=== PATIENT | female | born 1985 | race Caucasian/White ===

== ENCOUNTER → 2018-05-13 | Outpatient (CLI) | payer OTHER ==
[~2018-05-13] VITALS: Ht 167.6 cm; Wt 64.0 kg
[~2018-05-13] MED LIST: IBUPROFEN 800800 M1 PO; MOBIC15 MG PO
--- NOTE | ~2018-05-13 | HPC ---
[facility] [place] [address] PAIN MANAGEMENT CONSULTATION Name: GINNY CURRY Room #: REG BRAYDEN Jamir.#: [id number] Admission: 05/13/18 Attend Phys: Daniel Lowry MD Discharge: Date of : 81 Report #: [id number] THIS REPORT FOR: //name// CC: Jenifer Lowry DATE OF SERVICE: 05/13/2018 PRIMARY CARE PHYSICIAN: Jenifer Meadows MD CHIEF COMPLAINT: Low back pain. HISTORY OF PRESENT ILLNESS: The patient is a 33-year-old white female who has been referred to the pain clinic because of pain in her low back area and some pain down into the lower portion of her back. States that she has had some problems with back pain for a number of years. Notes that the pain over the last few months has increased significantly. Notes that the pain involves her lower back and is exacerbated with activities such as lifting, bending, AND twisting. 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 These activities significantly increase her pain and discomfort. She has tried nonsteroidal anti-inflammatory medication such as ibuprofen. She has undergone stretching and does work out at the gym. She has had physical therapy. Describes her discomfort as continuous, steady, aching, shooting, pulling, sharp and stabbing. Rates her pain as an 8/10 today. The patient has undergone chiropractic treatment. Has tried yoga. ALLERGIES: CYMBALTA. MEDICATIONS: Ibuprofen 800 mg b.i.d., Mirena 52 mcg/24 hours intrauterine device PAST MEDICAL HISTORY: Low back pain, genital warts, right nipple inversion, history of smoking - stopped on 03/2018. PAST SURGICAL HISTORY: No past surgical history. 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 She has been off work since 04/23/2018. REVIEW OF SYSTEMS: Headaches, constipation, frequent urination, breast discharge, lightheadedness, dizziness, nervousness, depression. LABORATORY DATA: 1. MRI of the lumbar spine dated 04/20/2018, disk levels L1-L2 unremarkable. L2-L3 broad-based disk bulge with mild facet arthrosis. [address] [address] PAIN MANAGEMENT CONSULTATION Name: GINNY CURRY Room #: REG [facility]#: [id number] Admission: 05/13/18 Attend Phys: Daniel Lowry MD Discharge: Date of : 81 Report #: [id number] 2. L2 3-4, mild facet arthrosis. 3. L4-L5, broad-based disk osteophyte bulge. Some endplate changes. 4. L5-S1, posterior disk protrusion with disk bulge, multilevel degenerative changes of the lumbar spine. PAIN CLINIC ASSESSMENT AND PQRS: 1. History of osteoarthritis. The patient has some arthritic changes in the L4-L5, end plate area of L4 and the top of L5. 2. Height 5 feet 6 inches, weight 141 pounds, BMI is 22.8. 3. Vital Signs: Blood pressure 105/64, pulse 83, respiratory rate 14, room air saturation 98%. 4. Pain intensity 10. 5. Fall risk. The patient has not fallen in the last 3 months. 6. Blood thinner. The patient is not on a blood thinning medication. 7. Hypertension. The patient is not being treated for hypertension. 8. Opioid therapy greater than 6 weeks. The patient is not on opioid regimen. 9. Risk assessment tool, low for opioid use. 10. Functional assessment tool, 45/70. 11. Recreational drug use. The patient denies use of recreational drugs. 12. Tobacco: The patient is a former smoker, had stopped smoking in 03/2018. 13. Alcohol: The patient denies use of alcoholic beverages. PHYSICAL EXAMINATION: GENERAL: The patient is a well-developed, well-nourished, white female. Appears her stated age. She is alert and oriented x 3. Her affect is appropriate. Speech is fluent. HEENT: Normocephalic, atraumatic. Extraocular eye muscles intact. Sclerae nonicteric. Mucous membranes are moist. The patient is somewhat depressed. She does cry during the interview. Complains of chronicity of the pain in her low back area. NECK: Without adenopathy or JVD. Good range of motion. LUNGS: Clear to auscultation without rhonchi or rales. HEART: Regular rate. S1, S2. ABDOMEN: Nontender. EXTREMITIES: Upper extremity muscle strength is judged to be 5/5 for the major muscle groups in the upper extremity. The patient has pain and increased in the low back area. Limited in forward bending to 35 degrees before onset of pain, stops the movement. Left and right lateral bending and left and right lateral rotation all cause some increased pain in the low back area. Complains of some pain in the low back area with pain radiating down into her buttocks on the left and right side. It follows the dermatomal distribution with numbness, tingling and perception of weakness in this area and sensory changes in the L4-L5 distribution. Deep tendon reflexes are +2 for the upper extremity. Biceps +2, triceps and brachioradialis are difficult to appreciate. Lsat Instructor strength 5/5. Lower extremity deep tendon reflexes +2 for the patellar reflexes. The patient is able to walk on her toes and walk on the heels. [facility] [address] [place] [address] PAIN MANAGEMENT CONSULTATION Name: GINNY CURRY [id number] Admission: 05/13/18 Attend Phys: Daniel Lowry MD Discharge: Date of : 81 Report #: [id number] IMPRESSION: Low back pain, L4-L5 dermatomal distribution with sensory changes, weakness, tingling down in the buttocks area, some pain down into the legs, difficulty bending. Positive straight leg raise, right. RECOMMENDATIONS: We discussed treatment options with the patient. The patient will return to the pain clinic after she has been pre-certified by her insurance company. At which time, she will then undergo an epidural steroid injection to help quell the pain and discomfort she is experiencing. She has undergone physical therapy greater than 6 weeks. She had an MRI, has tried nonsteroidal anti-inflammatory medications, has had chiropractic treatment. Has undergone yoga activities. We would like to thank you for letting us participate in her care. We hope she continues to improve. By: [id number] Daniel Lowry MD /JHONATHAN
[2018-05-13 08:40] VITALS: BP 105/64
--- NOTE | 2018-05-13 08:57 | NUR ---
Pain Clinic Assessment: 1. History of Osteoarthritis: History of Rheumatoid Arthritis: 2. Height: 5 ft. 6 in. 167.6 cm. Weight: 141.0 lb. oz. 63.957 kg. Patient's BMI: 22.8 3. Vital Signs: BP: 105/64 Pulse: 83 Resp: 14 Temp: 02 Sat: 98 ECG Mon: 4. Pain Intensity: 8 5. Fall Risk: Dizziness: Y Needs help standing or walking: N Fallen in the last 3 months: N Fall risk comments: 6. Patient on Blood Thinner: None 7. History of Hypertension: N 8. Opioid Therapy greater than 6 weeks: N Opiate Contract Signed: 9. Risk Assessment Tool Provided: 10. Functional Assessment Tool: 45 11. Recreational Drug Use: Past greater than 3 mos Drug Type: Tobacco Use: Former Smoker Tobacco Type: Amount or Packs/day: How Many Years: Alcohol Use: No Frequency: Quant:
== END ==
LOC: PAIN 07:35
DX: M54.5 Low back pain (principal); M25.551 Pain in right hip; M25.552 Pain in left hip; Z79.899 Other long term (current) drug therapy

== ENCOUNTER → 2018-05-25 | Outpatient (CLI) | payer OTHER ==
[~2018-05-25] VITALS: Ht 167.6 cm; Wt 65.9 kg
[2018-05-25 08:03] VITALS: BP 109/78
--- NOTE | 2018-05-25 08:07 | NUR ---
Pain Clinic Assessment: 1. History of Osteoarthritis: History of Rheumatoid Arthritis: 2. Height: 5 ft. 6 in. 167.6 cm. Weight: 145.2 lb. oz. 65.862 kg. Patient's BMI: 23.4 3. Vital Signs: BP: 109/78 Pulse: 75 Resp: 16 Temp: 02 Sat: 99 ECG Mon: 4. Pain Intensity: 7-8 5. Fall Risk: Dizziness: N Needs help standing or walking: N Fallen in the last 3 months: N Fall risk comments: 6. Patient on Blood Thinner: None 7. History of Hypertension: N 8. Opioid Therapy greater than 6 weeks: N Opiate Contract Signed: 9. Risk Assessment Tool Provided: HIGH 10. Functional Assessment Tool: 45 11. Recreational Drug Use: Past greater than 3 mos Drug Type: Tobacco Use: Former Smoker Tobacco Type: Amount or Packs/day: How Many Years: Alcohol Use: No Frequency: Quant:
--- NOTE | 2018-05-27 16:49 | HPC ---
[facility] [address] [place] [address] PAIN MANAGEMENT CONSULTATION Name: GINNY CURRY [facility] [id number] Admission: 05/25/18 Attend Phys: Daniel Lowry MD Discharge: Date of : 81 Report #: [id number] THIS REPORT FOR: //name// CC: Jenifer Burkett DATE OF SERVICE: 05/25/2018 CHIEF COMPLAINT: Here for an epidural injection. HISTORY: The patient is a 33-year-old female who has been experiencing pain and discomfort in the low back area. It has been going on for a number of years. Finds her pain continues to be problematic. Continues to work. 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 She continues to have pain and discomfort. Has tried nonsteroidal anti-inflammatory medication and works out in the gym on a regular basis. Continues to have pain and discomfort down in her back and has returned today for treatment. ALLERGIES: CYMBALTA. MEDICATIONS: Ibuprofen 800 mg, Mirena 52 mcg/24 hours intrauterine device. PAIN CLINIC ASSESSMENT/PQRS: 1. The patient has some arthritic changes in her L4-L5 endplate area as well as the top of L5. 2. Height 5 feet 6 inches, weight 145 pounds, BMI is 23.4. 3. Vital signs: Blood pressure 109/78, pulse 75, respiratory rate 16, room air saturation 99%. 4. Pain intensity 8/10. 5. Fall history: The patient has not fallen in the last 3 months. 6. Blood thinner. The patient is not on a blood thinning medication. 7. Hypertension. The patient has not been treated for hypertension. 8. Opioids. The patient is not on her opioid medication. 9. Risk assessment tool, high for opioid use. 10. Functional assessment tool 55. 11. Recreational drug use. The patient denies use of recreational drugs. 12. Tobacco: The patient is a former smoker. 13. Alcohol: The patient denies use of alcoholic beverages. PHYSICAL EXAMINATION: GENERAL: The patient is a well-developed, well-nourished white female. Appears her stated age. She is alert and oriented x 3. Her affect is appropriate. Speech is fluent. HEENT: Normocephalic, atraumatic. Extraocular eye muscles intact. Sclerae nonicteric. Mucous membranes are moist. [address] [address] PAIN MANAGEMENT CONSULTATION Name: GINNY CURRY Wali Room #: REG CLI [facility]#: [id number] Admission: 05/25/18 Attend Phys: Daniel Lowry MD Discharge: Date of : 81 Report #: [id number] NECK: Without adenopathy or JVD. LUNGS: Clear to auscultation without rhonchi or rales. HEART: Regular rate. S1, S2. ABDOMEN: Nontender. Bowel sounds present. EXTREMITIES: Upper extremity muscle strength is judged to be 5/5 for the major muscle groups in the upper extremity. The patient has some pain and discomfort with bending greater than 35 degrees. Has some pain that radiates down into the lateral portion of her buttocks area. Complains of some numbness and tingling been perception in the lower portion of her back and buttocks area. Deep tendon reflexes +2. IMPRESSION: Low back pain, L4-L5 dermatomal distribution with some sensory changes. RECOMMENDATIONS: We discussed treatment options with the patient. Risks and benefits of an epidural steroid injection had been discussed. Possible complications of the procedure, which could include but are not limited to infection, worsening pain, no improvement in pain, nerve damage, paralysis were discussed. The patient elects to proceed. PROCEDURE NOTE: The patient was taken to the procedure area. She was assisted in getting on the examination table. She had a pillow placed under her abdomen to bolster to improve positioning. Fluoroscopy was used to identify the L4-L5 interspace. This area had been sterilely prepped with Betadine and infiltrated with 0.25% bupivacaine using a 25-gauge needle. A 17-gauge Tuohy with loss of resistance technique using a midline approach at L4-L5 was undertaken. Aspiration was negative. A total of 80 mg Depo-Medrol, 40 mg triamcinolone and 2 mL of 0.25% bupivacaine was injected. The patient tolerated the procedure well. There were no complications. She remained in the Pain Clinic for an appropriate amount of time. Her pain decreased from 8 to 1 at the time of discharge. She will follow up in the future as needed. We would like to thank you for letting us participate in her care. We hope she continues to improve. <ELECTRONICALLY SIGNED> By: Daniel Lowry MD 05/27/18 1649 [id number] Daniel Lowry MD /ben
== END | disposition home or self-care (01) ==
LOC: PAIN 06:58
DX: M54.5 Low back pain (principal); Z88.8 Allergy status to other drugs, medicaments and biological substances; Z79.899 Other long term (current) drug therapy; I10 Essential (primary) hypertension

== ENCOUNTER → 2018-07-06 | Outpatient (CLI) | payer OTHER ==
[~2018-07-06] VITALS: Ht 167.6 cm; Wt 66.0 kg
[2018-07-06 13:52] VITALS: BP 113/68
--- NOTE | 2018-07-06 14:08 | NUR ---
Pain Clinic Assessment: 1. History of Osteoarthritis: Not Applicable History of Rheumatoid Arthritis: Not Applicable 2. Height: 5 ft. 6 in. 167.6 cm. Weight: 145.4 lb. oz. 65.953 kg. Patient's BMI: 23.5 3. Vital Signs: BP: 113/68 Pulse: 80 Resp: 14 Temp: 02 Sat: 98 ECG Mon: 4. Pain Intensity: 6 5. Fall Risk: Dizziness: Y Needs help standing or walking: N Fallen in the last 3 months: N Fall risk comments: 6. Patient on Blood Thinner: None 7. History of Hypertension: N 8. Opioid Therapy greater than 6 weeks: N Opiate Contract Signed: 9. Risk Assessment Tool Provided: HIGH 10. Functional Assessment Tool: 55/70 11. Recreational Drug Use: Past greater than 3 mos Drug Type: Tobacco Use: Former Smoker Tobacco Type: Amount or Packs/day: How Many Years: Alcohol Use: No Frequency: Quant:
--- NOTE | 2018-07-13 08:28 | HPC ---
[facility] [place] [address] PAIN MANAGEMENT CONSULTATION Name: GINNY CURRY [facility] [id number] Admission: 07/06/18 ������������������ Attend Phys: Daniel Lowry MD Discharge: ������������������ Date of : 81 Report #: [id number] THIS REPORT FOR: //name// CC: Jenifer Burkett MD DATE OF SERVICE: 07/06/2018 FOLLOWUP HISTORY: The patient is a 33-year-old female who has been seen in the pain clinic because of chronic low back pain. As you recall, she has had over a year history of back pain. Notes that her pain waxes and wanes. She continued to have pain and discomfort. 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 Finds her pain continues to be problematic. She continues to work out at the gym. She has been undergoing physical therapy. She was seen by Dr. Benitez Díaz. After careful evaluation, he explained that she does have some traumatic degenerative disk disease of the lower lumbar spine at L4-L5 and L5-S1 with associated Modic changes and annular tearing. She does continue to have low back pain without radiculitis. He had spoken with this patient in regards to options. He recommended a course of physical therapy. Also, requested medial branch blocks with the possibility of radiofrequency ablation at the L4-L5 and L5-S1 areas bilaterally. The surgeon feels that this option should be tried. Given her young age, he would like to refrain from doing a 2 level spinal fusion. ALLERGIES: CYMBALTA. CURRENT MEDICATIONS: Ibuprofen 800 mg, Mirena 52 mcg/24 hours intrauterine device. PAIN CLINIC ASSESSMENT/PQRS: 1. The patient has some arthritic changes in the lower portion of her back. The patient is not being treated for rheumatoid arthritis. 2. Height 5 feet 6 inches, weight 145 pounds, BMI is 23.5. 3. Vital signs: Blood pressure 113/68, pulse 80, respiratory rate 14, room air saturation 98%. 4. Pain intensity 09/26. 5. Fall history: The patient has not fallen in the last 3 months. 6. Blood thinner. The patient is not on a blood thinning medication. 7. Hypertension. The patient is not being treated for hypertension. 8. Opioids greater than 6 weeks. The patient is not on a chronic opioid regimen. 9. Risk assessment tool, high. 10. Functional assessment tool 55/70. 11. Recreational drug use. The patient denies use of recreational drugs. [address] [address] PAIN MANAGEMENT CONSULTATION Name: GINNY CURRY Room #: REG [facility]#: [id number] Admission: 07/06/18 ������������������ Attend Phys: Daniel Lowry MD Discharge: ������������������ Date of : 81 Report #: [id number] 12. Tobacco: The patient is a former smoker. 13. Alcohol: The patient denies frequent alcohol use. PHYSICAL EXAMINATION: GENERAL: The patient is a well-developed, well-nourished white female. Appears her stated age. She is alert and oriented x 3. Her affect is appropriate. Speech is fluent. HEENT: Normocephalic, atraumatic. Extraocular muscles intact. Sclerae are nonicteric. Mucous membranes are moist. NECK: Without adenopathy or JVD. HEART: Regular rate. S1, S2. LUNGS: Clear to auscultation without rhonchi or rales. EXTREMITIES: Upper extremity muscle strength is judged to be 5/5 with a major muscle groups in the upper extremity. Lower extremity muscle strength is judged to be 5/5 for the major muscle groups. The patient does have pain and discomfort in lower portion of her back. The patient does have some occasional pain that radiates down the lateral portion of her back and into her buttocks. Areas of tenderness located across the lower lumbar spine at the L4-L5 and L5-S1 area. Flexion and extension, left and right lateral rotation caused some pain in all planes with this motion. Magdaleno sign is negative. Sensation in the lower extremities within normal limits. IMPRESSION: 1. 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 2. Low back pain without significant radiculitis. RECOMMENDATIONS: We discussed the treatment options with the patient. We discussed the reason behind the medial branch block. We explained to the patient that these branches are small in the area of the low back area and carry pain messages from the facets and the muscles around the joints. We explained the diagnostic procedure. This will be done to confirm whether or not the facet joint is the cause and contributing to the pain. I explained to the patient how the procedure is done. Her back would be sterilely prepped. Local anesthetic will be injecting the area with the x-ray guidance. We explained the reasoning behind radiofrequency lesioning. I also explained the possible side effects and complications with the patient. She elects to proceed. PROCEDURE NOTE: The patient was taken to the procedure area. She was assisted in getting on the examination table. Her back was sterilely prepped with a Betadine solution and allowed to dry. On the right, the area of the right superior process of L4, inferior process of L4-L5 and the inferior portion of L5 were identified. The superior and the lateral process at L4, L5 and S1 were observed. These areas were anesthetized with a 25-gauge needle and were anesthetized with 1% lidocaine at each of the 3 sites. Along the lateral border near the eye of the David dog superior portion and lateral, a 25-gauge spinal [facility] [address] [place] [address] PAIN MANAGEMENT CONSULTATION Name: ANTOINETTEGINNY N Room #: REG BRAYDEN Bey#: [id number] Admission: 07/06/18 ������������������ Attend Phys: Daniel Lowry MD Discharge: ������������������ Date of : 81 Report #: [id number] needle was then advanced at all 3 levels on the right. Fluoroscopy confirmed appropriate placement. Total of 0.5 mL of 0.5% bupivacaine was injected at the L4, L5 and S1 areas near the medial branch locations. The contralateral left side was treated in a like fashion. The L4, L5, and S1 areas were anesthetized with 1 mL of 1% lidocaine. A 25-gauge needle was then advanced into the appropriate placed levels on the lateral areas near the David dog eye. The patient remained in the pain clinic for an appropriate amount of time. A total of 48 seconds fluoroscopy time was used. The patient's pain decreased 2-3. She was discharged. She will follow up in the future as needed. We would like to thank you for letting us participate in her care with the performance of the medial nerve blocks at L4-L5 and L5-S1 bilaterally. ��������������������������������������������� <ELECTRONICALLY SIGNED> ���������������������������������������� By: Daniel Lowry MD ��������������������������������������������� 07/13/18 0828 [id number] Daniel Lowry MD /nt
== END | disposition home or self-care (01) ==
LOC: PAIN 07:14
DX: M51.36 Other intervertebral disc degeneration, lumbar region (principal); M47.816 Spondylosis without myelopathy or radiculopathy, lumbar region; I10 Essential (primary) hypertension; Z88.8 Allergy status to other drugs, medicaments and biological substances; Z79.899 Other long term (current) drug therapy; Z87.891 Personal history of nicotine dependence

== ENCOUNTER → 2018-07-13 | Outpatient (CLI) | payer OTHER ==
[~2018-07-13] VITALS: Ht 167.6 cm; Wt 65.5 kg
[2018-07-13 09:30] VITALS: BP 110/67
--- NOTE | 2018-07-13 09:32 | NUR ---
Pain Clinic Assessment: 1. History of Osteoarthritis: Not Applicable History of Rheumatoid Arthritis: Not Applicable 2. Height: 5 ft. 6 in. 167.6 cm. Weight: 144.4 lb. oz. 65.499 kg. Patient's BMI: 23.3 3. Vital Signs: BP: 110/67 Pulse: 88 Resp: 16 Temp: 02 Sat: 99 ECG Mon: 4. Pain Intensity: 5 5. Fall Risk: Dizziness: N Needs help standing or walking: N Fallen in the last 3 months: N Fall risk comments: 6. Patient on Blood Thinner: None 7. History of Hypertension: N 8. Opioid Therapy greater than 6 weeks: N Opiate Contract Signed: 9. Risk Assessment Tool Provided: HIGH 10. Functional Assessment Tool: 55/70 11. Recreational Drug Use: Past greater than 3 mos Drug Type: Tobacco Use: Former Smoker Tobacco Type: Amount or Packs/day: How Many Years: Alcohol Use: No Frequency: Quant:
--- NOTE | 2018-07-21 08:41 | HPC ---
[facility] [place] [address] PAIN MANAGEMENT CONSULTATION Name: GINNY CURRY Room #: REG [facility].#: [id number] Admission: 07/13/18 ������������������ Attend Phys: Juan Ramon Mcdonnell DO Discharge: ������������������ Date of : 81 Report #: [id number] THIS REPORT FOR: //name// CC: Juan Ramon Burkett DATE OF SERVICE: 07/13/2018 REFERRING PHYSICIAN: Winifred Burkett MD CHIEF COMPLAINT: Axial back pain. HISTORY OF PRESENT ILLNESS: As you know, the patient is a 33-year-old female who has been referred to our service by Dr. Daniel Lowry for possible medial branch nerve blocks and progression towards radiofrequency lesioning of the lumbar spine. The patient apparently has undergone intra-articular facet injections with Dr. Lowry, which provided only transient improvement in symptoms. She had a reduction of pain from 5/10-0/10 with that injection. She has been referred over to my clinic to discuss medial branch nerve blocks and possible moving forward with radiofrequency lesioning. She denies injury or trauma to her low back that may have caused symptoms do occur. 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 Imaging of the lumbar spine shows mild arthritic changes, but no specific significant neural foraminal stenosis or central canal stenosis. The patient saw Surgery with Dr. Benitez Díaz, who referred the patient back to trial radiofrequency lesioning. ALLERGIES: CYMBALTA. CURRENT MEDICATIONS: Ibuprofen and Mirena. SOCIAL HISTORY: The patient denies tobacco, alcohol, IV or illicit drug use. 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 She is not receiving workmen's compensation or is she trying to obtain disability benefits. She is not in litigation in regards to her pain. IMAGING: There is no new imaging available. PHYSICAL EXAMINATION: VITAL SIGNS: Blood pressure 110/67, pulse 88, respiratory rate 16 and unlabored. The patient is 99% on room air. Height 5 feet 6 inches tall, weight 144.4 pounds, BMI calculated 23.3. GENERAL: Well-developed, well-nourished, well-hydrated 33-year-old female appearing stated age. Pain is rated today 5/10. [address] [address] PAIN MANAGEMENT CONSULTATION Name: GINNY CURRY Room #: REG [facility]#: [id number] Admission: 07/13/18 ������������������ Attend Phys: Juan Ramon Mcdonnell DO Discharge: ������������������ Date of : 81 Report #: [id number] HEENT: Normocephalic, atraumatic. Pupils equal, round, reactive to light. EXTREMITIES: Show no clubbing, no cyanosis, and no edema. MUSCULOSKELETAL: Lower extremity strength equal and symmetrical 5/5, intact to light touch from L1 through S2 dermatomes. Seated straight leg raising negative. Supine straight leg raising negative. Sandhya's test negative. Modified Gaenslen's positive for axial low back pain. Lumbar provocation testing met with mild restriction of motion, increasing pain. ASSESSMENT: 1. Lumbosacral spondylosis without radiculopathy. 2. Facet arthropathy of the lumbar spine. 3. Lumbar degeneration. 4. Chronic intractable pain. PLAN: 1. The patient has been referred to my clinic to discuss medial branch nerve blocks and possible radiofrequency lesioning. She did well with the initial intra-articular facet injections provided by Dr. Daniel Lowry received 100% improvement in overall pain lasting for a couple of hours. This would be indicative of facet arthropathy mediated pain. We have had the patient return today to undergo medial branch blocks of the L3, L4, L5 medial branch nerves in the lumbar region. If this is successful at alleviating the patient's symptoms for a prescribed period of time, would consider the patient a possible candidate for radiofrequency lesioning. We may be able to count the intra-articular facet injections as a first in the series of medial branch nerve blocks. There is a possibility that we will have to have the patient undergo another set of medial branch nerve blocks for confirmation sake, though this would be only based on a third republican payer restrictions. We have had the patient to return today to undergo the first in series of medial branch nerve blocks to determine if her symptoms will be amenable. The patient has been advised risks and benefits of bilateral L3, L4, L5 medial branch nerve blocks. These risks include but are not necessarily limited to bleeding, bruising, infection, worsening pain, no relief of pain, also risk of temporary or permanent muscle weakness, temporary or permanent nerve damage, possible paralysis and . The patient states understood and wished to proceed. 2. No medication changes made at today's visit. The patient will continue current medical therapy as previously prescribed. 3. We have requested the patient contact our clinic once she has returned to her normal baseline level of pain. This will give us a timeframe for which the medial branch nerve blocks provided efficacy if it is noted parameters for effectiveness, we would then look forward to moving towards either second in the series of medial branch nerve blocks or possibly radiofrequency lesioning DESCRIPTION OF PROCEDURE: Bilateral L3, L4, L5 lumbar medial branch nerve [address] [address] PAIN MANAGEMENT CONSULTATION Name: GINNY CURRY Room #: REG [facility]#: [id number] Admission: 07/13/18 ������������������ Attend Phys: Juan Ramon Mcdonnell DO Discharge: ������������������ Date of : 81 Report #: [id number] blocks. This is the first of 2 diagnostic medial branch blocks on the right and left side that the patient is undergoing. After obtaining written consent, the patient was taken back to the fluoroscopy suite and placed in a prone position on the fluoroscopy table with a pillow under the abdomen to decrease the lumbar lordosis. The skin overlying the lumbosacral area was prepped and draped in an aseptic fashion. The L4 transverse process corresponding to the L3 medial branch nerve, L5 transverse process corresponding to the L4 medial branch nerve on the right and left side was visualized under AP fluoroscopy. The skin and subcutaneous tissue overlying the target sites of injection were anesthetized using 2 mL of 1% lidocaine. A 22 gauge 3.5 inch spinal needle with a bent tip was advanced under fluoroscopic guidance using a superior to inferior and lateral to medial approach to the dorsal, superior and medial aspect of the base of the transverse processes. The needles were then directed ventral, medial and caudad to reach the target locations. An oblique view facilitated needle placement with properly positioned needless in the middle of the "eye" of the David dog for the medial branch blocks. At each site the needles rested on periosteum. After negative aspiration for heme or CSF, 0.2 mL of Omnipaque dye was injected at each site under live fluoroscopy, demonstrating absence of vascular uptake. After negative aspiration for heme or CSF, 0.5 mL of Xylocaine 1.5% with epinephrine was slowly injected at each site to avoid forcing the solution away from the target points. The needles were then removed. The L5 dorsal ramus block on the right and left side was performed using a slightly oblique approach under fluoroscopic guidance, placing the needle within the groove between the sacral site and the superior articular process of S1. The needle rested on periosteum. After negative aspiration for heme or CSF, 0.2 mL of Omnipaque dye was injected at under live fluoroscopy, demonstrating absence of vascular uptake. After negative aspiration for heme or CSF, 0.5 mL of lidocaine 1.5% with 1:200,000 epinephrine was slowly injected to avoid forcing the solution away from the target point. The needle was then removed. Sterile bandages were placed over the injection site. There were no apparent complications. The patient tolerated the procedure well and was carefully escorted to the recovery room in stable condition. The VAS was 5/10 before the procedure and 0/10, 10 minutes after the procedure. After meeting discharge criteria, the patient was discharged home. ��������������������������������������������� <ELECTRONICALLY SIGNED> ���������������������������������������� By: Juan Ramon Mcdonnell DO ��������������������������������������������� 07/21/18 0841 [id number] Juan Ramon Mcdonnell DO /nt
== END | disposition home or self-care (01) ==
LOC: PAIN 06:53
DX: M47.817 Spondylosis without myelopathy or radiculopathy, lumbosacral region (principal); M12.88 Other specific arthropathies, not elsewhere classified, other specified site; M51.36 Other intervertebral disc degeneration, lumbar region; G89.29 Other chronic pain; Z88.8 Allergy status to other drugs, medicaments and biological substances; Z79.899 Other long term (current) drug therapy; Z87.891 Personal history of nicotine dependence

== ENCOUNTER → 2018-07-26 | Outpatient (CLI) | payer OTHER ==
[~2018-07-26] VITALS: Ht 167.6 cm; Wt 65.7 kg
--- NOTE | ~2018-07-26 | HPC ---
[facility] [place] [address] PAIN MANAGEMENT CONSULTATION Name: GINNY CURRY Room #: REG [facility]#: [id number] Admission: 07/26/18 ������������������ Attend Phys: Juan Ramon Mcdonnell DO Discharge: ������������������ Date of : 81 Report #: [id number] THIS REPORT FOR: //name// CC: Juan Ramon Burkett MD DATE OF SERVICE: 07/26/2018 CHIEF COMPLAINT: Axial back pain. HISTORY OF PRESENT ILLNESS: As you know, the patient is a very pleasant 33-year-old female who was referred to my service by my partner, Dr. Daniel Lowry, for medial branch nerve blocks and progression towards radiofrequency lesioning. The patient did very well with medial branch nerve blocks noticing near 90% improvement in overall pain lasting for 4 hours. Unfortunately, her symptoms did return, which is typical for medial branch nerve blocks. She returns today in followup visit to begin the radiofrequency lesioning process starting on the right side addressing the L3, L4, L5 medial branch nerves respectively. She indicates today pain level of 6/10. ALLERGIES: CYMBALTA. CURRENT MEDICATIONS: Ibuprofen and Mirena. SOCIAL HISTORY: The patient denies tobacco, alcohol, IV or illicit drug use. 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 She is unaccompanied today. IMAGING: No new imaging available. PHYSICAL EXAMINATION: VITAL SIGNS: Blood pressure 115/68, pulse 96, respiratory rate 16 and unlabored, the patient is 95% on room air. Height 5 feet 6 inches tall, weight 144.8 pounds, BMI calculated 23.4. GENERAL: Well-developed, well-nourished, well-hydrated 33-year-old female appearing stated age. Pain is rated around 6/10. HEENT: Normocephalic, atraumatic. Pupils equal, round, reactive to light. EXTREMITIES: Show no clubbing, no cyanosis, and no edema. MUSCULOSKELETAL: Lower extremity strength is symmetrical 5/5, muscle bulk and tone is equal and symmetrical in lower extremities. Seated straight leg raising negative. Supine straight leg raising negative. Sandhya's test negative. Modified Gaenslen's positive for axial low back pain. Ankle clonus negative. Babinski is negative. ASSESSMENT: 1. Lumbosacral spondylosis without radiculopathy. [address] [address] PAIN MANAGEMENT CONSULTATION Name: GINNY CURRY Wali Room #: REG [facility]#: [id number] Admission: 07/26/18 ������������������ Attend Phys: Juan Ramon Mcdonnell DO Discharge: ������������������ Date of : 81 Report #: [id number] 2. Facet arthropathy of the lumbar spine. 3. Lumbar degeneration. 4. Chronic intractable pain. PLAN: 1. The patient has returned today in followup visit having noted excellent benefit with medial branch nerve block at last visit. She had noted 90% improvement in overall pain lasting for nearly 4 hours. She returns today in followup visit to undergo radiofrequency lesioning of the right L3, L4, and L5 medial branch nerves, the first part of the staged procedure to address facet arthropathy pain. I discussed the risks and the benefits of the procedure. She states she understood and wished to proceed. 2. No medication changes made at today's visit. The patient will continue current medical therapy as previously prescribed. 3. We will see the patient back in followup visit in 2 weeks. At that time, review the efficacy of today's radiofrequency lesioning and determine if the next in the series of radiofrequency lesioning would be recommended for the left side. PROCEDURE NOTE: DESCRIPTION OF PROCEDURE: Right L3, L4 and L5 lumbar medial branch radiofrequency ablations. Procedure was explained and informed consent was obtained from the patient. The patient was informed of the risks of procedure including infection, bleeding, nerve damage, failure to produce pain relief and postoperative discomfort lasting for several weeks. After discussing this information, the patient states she understood and wished to undergo the procedure. The patient was then taken to the fluoroscopy suite, placed in prone position with pillow under abdomen to decrease lumbar lordosis. Skin overlying the lumbosacral area was then prepped and draped in aseptic fashion. AP imaging of the lumbar spine was used to identify the L2 through L5 vertebral bodies and the sacral ala. The target location on the right side of the L4 transverse process corresponding to the L3 medial branch nerve and the L5 transverse process corresponding to the L4 medial branch nerve were established. Using a 27-gauge, 1-1/4 inch needle, skin wheals were placed at the junction of the transverse process and the respective superior articular process using 1 mL of 1% preservative-free lidocaine. We were careful to only anesthetize the skin and not the deep tissues. The radiofrequency lesioning needles were then advanced under fluoroscopic guidance using a superior and inferior, lateral to medial approach to the dorsal superior and medial aspect of the base of the transverse processes. The needles were then directed caudally to reach their location targets. An oblique view facilitated needle placement with properly positioned needles within the middle of the "eye" of the David dog. At each site, needles [address] [address] PAIN MANAGEMENT CONSULTATION Name: GINNY CURRY Room #: REG [facility] eBy#: [id number] Admission: 07/26/18 ������������������ Attend Phys: Juan Ramon Mcdonnell DO Discharge: ������������������ Date of : 81 Report #: [id number] rested on periosteum. Touching bone initially assured the needles were not placed too deeply. Radiofrequency lesioning of the L5 medial branch nerve on the right side was performed using a superior to inferior, lateral to medial approach under fluoroscopic guidance, placing the needle within the groove between the sacral ala and the superior articular process of S1. Needle rested on periosteum. Stimulation was performed at each level once the cannulas were in position. Sensory stimulation was performed at 0.3, 0.3 and 0.3 with impedance of 179, 319 and 245 at 50 Hz for the L3, L4, L5 medial branch nerves respectively. Good stimulation of the lumbar and buttock region was elicited indicating correct alignment with the posterior primary ramus. Absence of lower motor fasciculation was noted at 3 volts 2 Hz stimulation when testing the L3, L4, L5 medial branch nerves respectively. Following this affirmation of disassociation between sensory and motor stimulation, negative aspiration noted at all 3 levels. Next, 1 mL of bupivacaine 0.5% was injected slowly to avoid forcing the solution away from the site. After a 90-second delay, lesions were performed at 80 degrees Celsius for 90 seconds. Once the tips of the needle had cooled to less than 45 degrees Celsius, 1 mL of a solution containing 1 mL 40 mg per mL, 40 mg total triamcinolone and 3 mL bupivacaine 0.5% injected slowly. [place] were then sequentially removed after being flushed with 1 mL of 1% lidocaine. The patient was able to move all 4 extremities after procedure. Sterile bandages were placed over each of the injection sites. The patient tolerated procedure well, carefully escorted to recovery room in stable condition. No apparent complications. After meeting our discharge criteria, the patient discharged home. ��������������������������������������������� ���������������������������������������� By: ��������������������������������������������� 1035 [id number] Juan Ramon Mcdonnell DO /nt
[2018-07-26 12:47] VITALS: BP 115/68
--- NOTE | 2018-07-26 12:56 | NUR ---
Pain Clinic Assessment: 1. History of Osteoarthritis: Not Applicable History of Rheumatoid Arthritis: Not Applicable 2. Height: 5 ft. 6 in. 167.6 cm. Weight: 144.8 lb. oz. 65.681 kg. Patient's BMI: 23.4 3. Vital Signs: BP: 115/68 Pulse: 96 Resp: 16 Temp: 02 Sat: 95 ECG Mon: 4. Pain Intensity: 6 5. Fall Risk: Dizziness: Y Needs help standing or walking: N Fallen in the last 3 months: N Fall risk comments: 6. Patient on Blood Thinner: None 7. History of Hypertension: N 8. Opioid Therapy greater than 6 weeks: N Opiate Contract Signed: 9. Risk Assessment Tool Provided: HIGH 10. Functional Assessment Tool: 55/70 11. Recreational Drug Use: Past greater than 3 mos Drug Type: Tobacco Use: Former Smoker Tobacco Type: Amount or Packs/day: How Many Years: Alcohol Use: No Frequency: Quant:
== END | disposition home or self-care (01) ==
LOC: PAIN 07:03
DX: M47.817 Spondylosis without myelopathy or radiculopathy, lumbosacral region (principal); M47.816 Spondylosis without myelopathy or radiculopathy, lumbar region; M51.36 Other intervertebral disc degeneration, lumbar region; G89.29 Other chronic pain; Z88.8 Allergy status to other drugs, medicaments and biological substances; Z79.899 Other long term (current) drug therapy; Z87.891 Personal history of nicotine dependence